=== PATIENT | female | born 1985 | race Caucasian/White ===

== ENCOUNTER 2022-07-03 07:13 | Day surgery (SDC) | payer OTHER ==
[~2022-07-03] VITALS: Ht 154.9 cm; Wt 66.7 kg
[2022-07-03] MEDS ORDERED: fentaNYL citrate 0.05 MG/ML VIAL ONE ×2 (07:37)
[2022-07-03] MEDS ORDERED: MIDAZOLAM 5 MG/5 ML VIAL ONE (07:37)
[2022-07-03] MEDS ORDERED: fentaNYL citrate 0.05 MG/ML VIAL IVP ONE (09:10)
[2022-07-03] MEDS ORDERED: MIDAZOLAM 5 MG/5 ML VIAL IV ONE (09:10)
== END 2022-07-03 10:35 | disposition home or self-care (01) ==
LOC: MMU 07:13 → MDS 07:13
PROVIDERS: ATTEND Surgery
DX: Z12.11 Encounter for screening for malignant neoplasm of colon (principal); K57.30 Diverticulosis of large intestine without perforation or abscess without bleeding; K62.89 Other specified diseases of anus and rectum; I48.91 Unspecified atrial fibrillation; Z93.3 Colostomy status; Z79.899 Other long term (current) drug therapy
CPT/HCPCS: 45378; J2250; J3010; 44388